=== PATIENT | female | born 1940 | race Caucasian/White ===

== ENCOUNTER 2016-07-17 16:14 | Inpatient (IN) | payer OTHER ==
[~2016-07-17] VITALS: Ht 152.4 cm; Wt 56.2 kg
[~2016-07-17 16:14] MED LIST: ALBU8.5H3 PO; ALLER-CLEAR PO; ASCO10004 PO; ASPI-13 PO; CHOL500015 PO; FLUT12HF2 INH; FLUT16SP NS; HYDR12.58 PO; LEVA15HF2 PO; LOSA25TA5 PO; MULT-516 PO; OMEG-14 PO; SODI1PAC12 NS; SODI50SP NS; TIOT18CA INH; VITA1TAB3 PO
[2016-07-17] MEDS ORDERED: methylPREDNISolone SOD SUCC 125 MG/2 ML IVP ONE (16:30)
[2016-07-17] MEDS ORDERED: SODIUM CHLORIDE FLUSH 10ML SYR IVF ONE (16:30)
[2016-07-17] MEDS ORDERED: ALBUTEROL SULFATE 2.5 MG/3 ML ONE (16:37)
[2016-07-17 16:58] LABS: BLOOD UREA NITROGEN 5 mg/dL (7-18)
[2016-07-17] MEDS ORDERED: PLEASE ENTER HEIGHT AND WEIGHT MC SCH (17:00)
[2016-07-17] MEDS ORDERED: methylPREDNISolone SOD SUCC 125 MG/2 ML ONE (17:07)
[2016-07-17 17:16] LABS: IS PT STATUS REG ER OR PRE ER? YES
[2016-07-17] MEDS ORDERED: POTASSIUM CHLORIDE 20 MEQ TAB.ER.PRT ONE (17:27)
[2016-07-17] MEDS ORDERED: POTASSIUM CHLORIDE 20 MEQ TAB.ER.PRT PO ONE (17:30)
[2016-07-17] MEDS ORDERED: POTASSIUM CHLORIDE 40 MEQ in SODIUM CHLORIDE 0.9% 500 ML IV ONE (17:30)
[2016-07-17] MEDS ORDERED: SODIUM CHLORIDE 0.9% 1,000ML IVBOLUS ONE (17:30)
[2016-07-17] MEDS ORDERED: BISACODYL 10 MG SUPP PR PRN (18:30)
[2016-07-17] MEDS ORDERED: DOCUSATE 100 MG CAPSULE PO PRN (18:30)
[2016-07-17] MEDS ORDERED: POLYETHYLENE GLYCOL 17 GM PACKET PO PRN (18:30)
[2016-07-17] MEDS ORDERED: ONDANSETRON 2MG/ML, 2ML IVPush PRN (18:30)
[2016-07-17] MEDS ORDERED: ACETAMINOPHEN 325 MG TABLET PO PRN (18:30)
[2016-07-17 20:15] VITALS: BP 126/69
[2016-07-17 21:04] VITALS: BP 158/68
[2016-07-17 22:01] LABS: BLOOD UREA NITROGEN 4 mg/dL (7-18)
[2016-07-17 22:06] LABS: IS PT STATUS REG ER OR PRE ER? NO
[2016-07-17] MEDS: NS + 20MEQ KCL 1,000 ML IV SCH (22:27)
[2016-07-17] MEDS: DOXYCYCLINE 100 MG in DEXTROSE 5% 250 ML IV SCH (22:27)
[2016-07-17] MEDS ORDERED: MAGNESIUM SULFATE PMX 2GM/50ML 50 ML IV ONE (22:30)
[2016-07-17] MEDS: ENOXAPARIN 40 MG/0.4 ML SQ SCH (22:37)
[2016-07-17] MEDS: methylPREDNISolone SOD SUCC 125 MG/2 ML IVPush SCH (23:20)
[2016-07-18 02:07] VITALS: BP 127/72
[2016-07-18] MEDS: methylPREDNISolone SOD SUCC 125 MG/2 ML IVPush SCH ×4 (05:13→23:23)
[2016-07-18 06:00] LABS: ASPARTATE AMINO TRANSFERASE 23 U/L (15-37); BLOOD UREA NITROGEN 3 mg/dL (7-18)
[2016-07-18 06:14] LABS: PATH.CAST-FLAG NOT PRESENT; SPERM-FLAG NOT PRESENT; SRC-FLAG NOT PRESENT; XTAL-FLAG NOT PRESENT; YLC-FLAG NOT PRESENT
[2016-07-18 06:15] LABS: POTASSIUM,URINE RANDOM 22 mmol/L
[2016-07-18 07:43] VITALS: BP 145/72
[2016-07-18] MEDS ORDERED: POTASSIUM CHLORIDE 20 MEQ TAB.ER.PRT PO SCH (08:00)
[2016-07-18] MEDS: LOSARTAN 25MG TABLET PO SCH (08:29)
[2016-07-18] MEDS: DOXYCYCLINE 100 MG in DEXTROSE 5% 250 ML IV SCH ×2 (10:55→20:55)
[2016-07-18] MEDS: FLUTICASONE/VILANTEROL 200-25MCG/INH INH SCH (10:56)
[2016-07-18] MEDS: FLUTICASONE NASAL SPRAY 16GM NAS SCH (10:56)
[2016-07-18] MEDS ORDERED: POTASSIUM CHLORIDE 20 MEQ TAB.ER.PRT PO ONE (11:00)
[2016-07-18] MEDS ORDERED: MAGNESIUM SULFATE PMX 2GM/50ML 50 ML IV ONE (11:00)
[2016-07-18] MEDS ORDERED: POTASSIUM CHLORIDE 40 MEQ in SODIUM CHLORIDE 0.9% 500 ML IV ONE (11:00)
[2016-07-18] MEDS: NS + 20MEQ KCL 1,000 ML IV SCH (11:01)
[2016-07-18] MEDS ORDERED: FUROSEMIDE 20 MG/2 ML IV ONE (11:30)
[2016-07-18] MEDS: MAGNESIUM CHLORIDE 64 MG TABLET.DR PO SCH ×2 (12:32→20:49)
[2016-07-18 13:22] VITALS: BP 184/74
[2016-07-18] MEDS: IPRATROPIUM 0.5 MG/2.5 ML INHA NPPB SCH ×2 (17:10→20:04)
[2016-07-18] MEDS: ALBUTEROL SULFATE 2.5 MG/3 ML NPPB PRN (17:10)
[2016-07-18] MEDS: POTASSIUM CHLORIDE 20 MEQ TAB.ER.PRT PO SCH (18:38)
[2016-07-18 19:34] VITALS: BP 123/61
[2016-07-18] MEDS: ENOXAPARIN 40 MG/0.4 ML SQ SCH (20:49)
[2016-07-19] MEDS: ALBUTEROL SULFATE 2.5 MG/3 ML NPPB PRN (00:05)
[2016-07-19 01:18] VITALS: BP 126/76
[2016-07-19] MEDS: methylPREDNISolone SOD SUCC 125 MG/2 ML IVPush SCH ×4 (05:47→23:13)
[2016-07-19 05:57] LABS: BLOOD UREA NITROGEN 7 mg/dL (7-18)
[2016-07-19 06:46] VITALS: BP 159/68
[2016-07-19] MEDS: IPRATROPIUM 0.5 MG/2.5 ML INHA NPPB SCH ×3 (08:59→18:58)
[2016-07-19] MEDS: FLUTICASONE/VILANTEROL 200-25MCG/INH INH SCH (09:36)
[2016-07-19] MEDS: FLUTICASONE NASAL SPRAY 16GM NAS SCH (09:36)
[2016-07-19] MEDS: DOXYCYCLINE 100 MG in DEXTROSE 5% 250 ML IV SCH ×2 (09:37→21:45)
[2016-07-19] MEDS: MAGNESIUM CHLORIDE 64 MG TABLET.DR PO SCH ×2 (09:37→20:12)
[2016-07-19] MEDS: LOSARTAN 25MG TABLET PO SCH (09:37)
[2016-07-19] MEDS: POTASSIUM CHLORIDE 20 MEQ TAB.ER.PRT PO SCH ×2 (09:37→18:31)
[2016-07-19] MEDS: FUROSEMIDE 20 MG TABLET PO SCH (11:55)
[2016-07-19 13:07] VITALS: BP 136/75
[2016-07-19] MEDS: ACETAMINOPHEN 325 MG TABLET PO SCH ×2 (15:00→20:12)
[2016-07-19 18:22] VITALS: BP 145/67
[2016-07-19] MEDS: ENOXAPARIN 40 MG/0.4 ML SQ SCH (20:11)
[2016-07-20 03:32] VITALS: BP 140/71
[2016-07-20 05:25] LABS: BLOOD UREA NITROGEN 13 mg/dL (7-18)
[2016-07-20] MEDS: methylPREDNISolone SOD SUCC 125 MG/2 ML IVPush SCH ×3 (05:40→18:31)
[2016-07-20] MEDS: IPRATROPIUM 0.5 MG/2.5 ML INHA NPPB SCH ×3 (08:10→20:13)
[2016-07-20 08:30] VITALS: BP 149/80
[2016-07-20] MEDS: FLUTICASONE NASAL SPRAY 16GM NAS SCH (09:00)
[2016-07-20] MEDS: FLUTICASONE/VILANTEROL 200-25MCG/INH INH SCH (09:00)
[2016-07-20] MEDS: POTASSIUM CHLORIDE 20 MEQ TAB.ER.PRT PO SCH (10:12)
[2016-07-20] MEDS: FUROSEMIDE 20 MG TABLET PO SCH (10:13)
[2016-07-20] MEDS: MAGNESIUM CHLORIDE 64 MG TABLET.DR PO SCH ×2 (10:14→20:59)
[2016-07-20] MEDS: LOSARTAN 25MG TABLET PO SCH ×2 (10:14→20:59)
[2016-07-20] MEDS: DOXYCYCLINE 100 MG in DEXTROSE 5% 250 ML IV SCH ×2 (10:18→20:59)
[2016-07-20] MEDS: ACETAMINOPHEN 325 MG TABLET PO SCH ×2 (11:42→21:00)
[2016-07-20] MEDS ORDERED: ERGOCALCIFEROL 50,000 UNIT CAPSULE PO SCH (12:00)
[2016-07-20 17:22] VITALS: BP 164/74
[2016-07-20 18:25] LABS: ABG COLLECTION SITE LEFT BRACHIAL
[2016-07-20] MEDS: ALBUTEROL/IPRATROPIUM 2.5MG/0.5MG, 3 ML NPPB SCH ×2 (20:00→21:00)
[2016-07-20] MEDS ORDERED: IPRATROPIUM 0.5 MG/2.5 ML INHA ONE (20:05)
[2016-07-20 20:45] VITALS: BP 170/79
[2016-07-20] MEDS: ENOXAPARIN 40 MG/0.4 ML SQ SCH (21:00)
[2016-07-20] MEDS ORDERED: IPRATROPIUM 0.5 MG/2.5 ML INHA NPPB SCH (21:00)
[2016-07-20 21:08] LABS: ABG COLLECTION SITE LEFT RADIAL; COLLATERAL CIRCULATION TESTING NORMAL
[2016-07-20] MEDS: CEFTRIAXONE PMX 1GM/50ML 50 ML IV SCH (22:32)
[2016-07-21] MEDS: methylPREDNISolone SOD SUCC 125 MG/2 ML IVPush SCH ×5 (00:01→23:47)
[2016-07-21 01:36] VITALS: BP 173/72
[2016-07-21] MEDS: hydrALAzine 20 MG/ML, 1ML IV PRN (01:55)
[2016-07-21] MEDS ORDERED: LORazepam 2 MG/ML, 1ML IVPush ONE (03:00)
[2016-07-21] MEDS ORDERED: LORazepam 0.5MG TABLET PO PRN (03:00)
[2016-07-21 07:30] VITALS: BP 160/95
[2016-07-21] MEDS: IPRATROPIUM 0.5 MG/2.5 ML INHA NPPB SCH ×5 (08:13→22:23)
[2016-07-21] MEDS: DOXYCYCLINE 100 MG in DEXTROSE 5% 250 ML IV SCH ×2 (08:51→21:22)
[2016-07-21] MEDS: FLUTICASONE/VILANTEROL 200-25MCG/INH INH SCH (08:51)
[2016-07-21] MEDS: FLUTICASONE NASAL SPRAY 16GM NAS SCH (08:52)
[2016-07-21] MEDS: MAGNESIUM CHLORIDE 64 MG TABLET.DR PO SCH ×2 (08:52→20:38)
[2016-07-21] MEDS: LOSARTAN 25MG TABLET PO SCH (08:52)
[2016-07-21] MEDS: ACETAMINOPHEN 325 MG TABLET PO SCH ×2 (08:53→20:39)
[2016-07-21 12:22] VITALS: BP 159/80
[2016-07-21] MEDS ORDERED: LABETALOL 5MG/ML, 20ML IV PRN (17:00)
[2016-07-21] MEDS: NYSTATIN 500,000 UNITS/5 ML UDC PO SCH ×2 (17:28→20:39)
[2016-07-21] MEDS: CARVEDILOL 6.25 MG TABLET PO SCH (17:29)
[2016-07-21 18:38] VITALS: BP 170/103
[2016-07-21 19:56] VITALS: BP 158/71
[2016-07-21 20:34] VITALS: BP 175/94
[2016-07-21] MEDS: CEFTRIAXONE PMX 1GM/50ML 50 ML IV SCH (20:37)
[2016-07-21] MEDS: ENOXAPARIN 40 MG/0.4 ML SQ SCH (20:39)
[2016-07-21] MEDS: LOSARTAN 50MG TABLET PO SCH (21:22)
[2016-07-22 01:45] VITALS: BP 196/95
[2016-07-22] MEDS: hydrALAzine 20 MG/ML, 1ML IV PRN (01:50)
[2016-07-22 04:00] VITALS: BP 152/81
[2016-07-22 06:08] LABS: BLOOD UREA NITROGEN 16 mg/dL (7-18)
[2016-07-22] MEDS: NYSTATIN 500,000 UNITS/5 ML UDC PO SCH ×4 (06:09→21:13)
[2016-07-22] MEDS: methylPREDNISolone SOD SUCC 125 MG/2 ML IVPush SCH ×4 (06:09→23:30)
[2016-07-22] MEDS: CARVEDILOL 6.25 MG TABLET PO SCH (06:09)
[2016-07-22] MEDS: IPRATROPIUM 0.5 MG/2.5 ML INHA NPPB SCH ×4 (07:20→19:15)
[2016-07-22 07:22] VITALS: BP 172/80
[2016-07-22] MEDS: LOSARTAN 50MG TABLET PO SCH ×2 (08:30→21:14)
[2016-07-22] MEDS: MAGNESIUM CHLORIDE 64 MG TABLET.DR PO SCH ×2 (08:30→21:14)
[2016-07-22] MEDS: ACETAMINOPHEN 325 MG TABLET PO SCH ×2 (08:30→21:13)
[2016-07-22] MEDS: DOXYCYCLINE 100 MG in DEXTROSE 5% 250 ML IV SCH ×2 (08:35→22:01)
[2016-07-22] MEDS ORDERED: FUROSEMIDE 20 MG/2 ML IV ONE (10:30)
[2016-07-22] MEDS: FLUTICASONE/VILANTEROL 200-25MCG/INH INH SCH (12:19)
[2016-07-22] MEDS: FLUTICASONE NASAL SPRAY 16GM NAS SCH (12:19)
[2016-07-22 13:50] VITALS: BP 162/71
[2016-07-22] MEDS ORDERED: CARVEDILOL 6.25 MG TABLET PO SCH (18:00)
[2016-07-22 21:00] VITALS: BP 147/73
[2016-07-22] MEDS: CEFTRIAXONE PMX 1GM/50ML 50 ML IV SCH (21:08)
[2016-07-22] MEDS: ENOXAPARIN 40 MG/0.4 ML SQ SCH (21:14)
[2016-07-23 02:49] VITALS: BP 148/81
[2016-07-23] MEDS ORDERED: CARVEDILOL 25 MG TABLET PO SCH (06:00)
[2016-07-23] MEDS: methylPREDNISolone SOD SUCC 125 MG/2 ML IVPush SCH ×2 (06:05→11:40)
[2016-07-23] MEDS: NYSTATIN 500,000 UNITS/5 ML UDC PO SCH ×2 (06:05→11:40)
[2016-07-23 06:52] VITALS: BP 148/71
[2016-07-23] MEDS: IPRATROPIUM 0.5 MG/2.5 ML INHA NPPB SCH ×3 (07:15→16:38)
[2016-07-23] MEDS: FLUTICASONE/VILANTEROL 200-25MCG/INH INH SCH (08:22)
[2016-07-23] MEDS: ACETAMINOPHEN 325 MG TABLET PO SCH (08:23)
[2016-07-23] MEDS: LOSARTAN 50MG TABLET PO SCH (08:23)
[2016-07-23] MEDS: FLUTICASONE NASAL SPRAY 16GM NAS SCH (08:23)
[2016-07-23] MEDS: MAGNESIUM CHLORIDE 64 MG TABLET.DR PO SCH (08:23)
[2016-07-23] MEDS: DOXYCYCLINE 100 MG in DEXTROSE 5% 250 ML IV SCH (09:27)
[2016-07-23] MEDS ORDERED: CEFT1PIG2 IV (10:59)
[2016-07-23] MEDS ORDERED: PRED5TAB PO (10:59)
[2016-07-23] MEDS ORDERED: DOXY100T PO (10:59)
[2016-07-23] MEDS ORDERED: ERGO500017 PO (10:59)
[2016-07-23] MEDS ORDERED: LOSA50TA2 PO (10:59)
[2016-07-23] MEDS ORDERED: POLY17PO5 PO (10:59)
[2016-07-23] MEDS ORDERED: ACET325T14 PO (10:59)
[2016-07-23] MEDS ORDERED: CARV25TA12 PO (10:59)
[2016-07-23] MEDS ORDERED: POTA20TA14 PO (10:59)
[2016-07-23] MEDS ORDERED: FLUT1DIS3 INH (10:59)
[2016-07-23] MEDS ORDERED: TRAM50TA2 PO ×2 (10:59)
[2016-07-23] MEDS ORDERED: FURO20TA3 PO (10:59)
[2016-07-23] MEDS ORDERED: MAGN64TA9 PO (10:59)
[2016-07-23 16:56] VITALS: BP 168/81
[2016-07-24] MEDS ORDERED: FUROSEMIDE 20 MG TABLET PO SCH (09:00)
== END 2016-07-23 19:05 | disposition home or self-care (01) | DRG 291 ==
LOC: ED 18:00 → EDIP 18:01 → SUATTDRO 18:09 → ED 18:35 → 5SO 20:04
DX: I11.0 Hypertensive heart disease with heart failure (principal); J96.21 Acute and chronic respiratory failure with hypoxia; J18.9 Pneumonia, unspecified organism; E87.1 Hypo-osmolality and hyponatremia; J44.1 Chronic obstructive pulmonary disease with (acute) exacerbation; J44.0 Chronic obstructive pulmonary disease with (acute) lower respiratory infection; E55.9 Vitamin D deficiency, unspecified; E87.6 Hypokalemia; F17.200 Nicotine dependence, unspecified, uncomplicated; G89.29 Other chronic pain; M54.9 Dorsalgia, unspecified; I50.33 Acute on chronic diastolic (congestive) heart failure; I73.9 Peripheral vascular disease, unspecified; R13.10 Dysphagia, unspecified; Z99.81 Dependence on supplemental oxygen; W18.39XA Other fall on same level, initial encounter; Y93.89 Activity, other specified; Y92.89 Other specified places as the place of occurrence of the external cause; Y99.8 Other external cause status
CPT/HCPCS: 36415; 36600; 70450; 71010; 74230; 80048; 80053; 81001; 82040; 82306; 82436; 82607; 82803; 83605; 83735; 83880; 83930; 83935; 84133; 84145; 84300; 84439; 84443; 84484; 85025; 85610; 85730; 87040; 87070; 87205; 93005; 93306; 94640; 96365; 96366; 96375; J0696; J1650; J3480; J7060; J7613; J7644; 92523-GN; J0360; J1940; J2060; J2930; J3475; J7030; J7040

== ENCOUNTER 2016-08-10 12:53 | Inpatient (IN) | payer OTHER ==
[~2016-08-10] VITALS: Ht 144.8 cm; Wt 55.2 kg
[~2016-08-10 12:53] MED LIST changes: +ACET325T14 PO; +CARV25TA12 PO; +CEFT1PIG2 IV; +DOXY100T PO; +ERGO500017 PO; +FLUT1DIS3 INH; +FURO20TA3 PO; +LOSA50TA2 PO; +MAGN64TA9 PO; +POLY17PO5 PO; +POTA20TA14 PO; +PRED5TAB PO; +TRAM50TA2 PO
[2016-08-10] MEDS ORDERED: SODIUM CHLORIDE FLUSH 10ML SYR IVF ONE (13:30)
[2016-08-10 13:59] LABS: BLOOD UREA NITROGEN 12 mg/dL (7-18)
[2016-08-10 14:06] LABS: IS PT STATUS REG ER OR PRE ER? YES
[2016-08-10] MEDS ORDERED: ALBUTEROL/IPRATROPIUM 2.5MG/0.5MG, 3 ML NPPB ONE (15:30)
[2016-08-10] MEDS ORDERED: ALBUTEROL/IPRATROPIUM 2.5MG/0.5MG, 3 ML ONE (15:51)
[2016-08-10] MEDS: ALBUTEROL/IPRATROPIUM 2.5MG/0.5MG, 3 ML NPPB SCH ×3 (16:18→22:28)
[2016-08-10] MEDS ORDERED: CEFTRIAXONE 1,000 MG in SODIUM CHLORIDE 0.9% 50 ML IV SCH (16:30)
[2016-08-10] MEDS ORDERED: ALBUTEROL SULFATE 2.5 MG/3 ML NPPB SCH (16:30)
[2016-08-10] MEDS ORDERED: DOCUSATE 100 MG CAPSULE PO PRN (16:30)
[2016-08-10] MEDS ORDERED: ACETAMINOPHEN 325 MG TABLET PO PRN (16:30)
[2016-08-10] MEDS ORDERED: HYDROcodone/APAP 5/325 TABLET PO PRN (16:30)
[2016-08-10] MEDS ORDERED: BISACODYL 10 MG SUPP PR PRN (16:30)
[2016-08-10] MEDS ORDERED: ONDANSETRON 2MG/ML, 2ML IVPush PRN (16:30)
[2016-08-10] MEDS ORDERED: FUROSEMIDE 20 MG/2 ML IV ONE (16:30)
[2016-08-10] MEDS ORDERED: POLYETHYLENE GLYCOL 17 GM PACKET PO PRN (16:30)
[2016-08-10 17:00] VITALS: BP 133/71
[2016-08-10] MEDS: CARVEDILOL 25 MG TABLET PO SCH (18:23)
[2016-08-10] MEDS: methylPREDNISolone SOD SUCC 125 MG/2 ML IVPush SCH (18:24)
[2016-08-10 18:32] VITALS: BP 133/71
[2016-08-10 19:31] VITALS: BP 119/66
[2016-08-10] MEDS: FLUTICASONE/VILANTEROL 100-25MCG/INH INH SCH (21:00)
[2016-08-10] MEDS: SODIUM CHLORIDE FLUSH 3ML SYRINGE IVF SCH (21:00)
[2016-08-10] MEDS: ERGOCALCIFEROL 50,000 UNIT CAPSULE PO SCH (21:07)
[2016-08-10] MEDS: GUAIFENESIN ER 600 MG TABLET PO SCH (21:07)
[2016-08-10] MEDS: LOSARTAN 50MG TABLET PO SCH (21:07)
[2016-08-10] MEDS: DOXYCYCLINE 100 MG in DEXTROSE 5% 250 ML IV SCH (21:07)
[2016-08-10] MEDS: ENOXAPARIN 40 MG/0.4 ML SQ SCH (21:08)
[2016-08-10] MEDS: CEFTRIAXONE PMX 1GM/50ML 50 ML IV SCH (21:33)
[2016-08-11] MEDS: methylPREDNISolone SOD SUCC 125 MG/2 ML IVPush SCH ×4 (00:28→16:37)
[2016-08-11] MEDS: ALBUTEROL/IPRATROPIUM 2.5MG/0.5MG, 3 ML NPPB SCH ×7 (02:41→23:00)
[2016-08-11] MEDS: morphine SULFATE 10 MG/ML, 1ML IVPush PRN (02:51)
[2016-08-11 03:20] VITALS: BP 130/76
[2016-08-11] MEDS ORDERED: TRAZODONE 50MG TABLET PO PRN (03:30)
[2016-08-11] MEDS ORDERED: LORazepam 1MG TABLET PO ONE (03:30)
[2016-08-11 03:31] LABS: ABG COLLECTION SITE RIGHT BRACHIAL
[2016-08-11 03:42] LABS: BLOOD UREA NITROGEN 14 mg/dL (7-18)
[2016-08-11] MEDS ORDERED: FUROSEMIDE 40 MG/4 ML ONE (04:22)
[2016-08-11] MEDS: FUROSEMIDE 40 MG/4 ML IV SCH ×2 (04:25→17:00)
[2016-08-11 06:07] VITALS: BP 146/83
[2016-08-11] MEDS: CARVEDILOL 25 MG TABLET PO SCH ×2 (06:09→18:00)
[2016-08-11 07:46] VITALS: BP 136/73
[2016-08-11] MEDS ORDERED: OMNIPAQUE 350 MG/ML, 100ML BOTTLE ONE (07:47)
[2016-08-11] MEDS ORDERED: methylPREDNISolone SOD SUCC 125 MG/2 ML IVPush SCH (08:00)
[2016-08-11 08:34] LABS: ABG COLLECTION SITE LEFT RADIAL; COLLATERAL CIRCULATION TESTING NORMAL
[2016-08-11] MEDS: MAGNESIUM CHLORIDE 64 MG TABLET.DR PO SCH (08:49)
[2016-08-11] MEDS: GUAIFENESIN ER 600 MG TABLET PO SCH ×2 (08:49→20:45)
[2016-08-11] MEDS: LOSARTAN 50MG TABLET PO SCH ×2 (08:49→20:41)
[2016-08-11] MEDS: FLUTICASONE/VILANTEROL 100-25MCG/INH INH SCH ×2 (08:50→20:40)
[2016-08-11] MEDS: DOXYCYCLINE 100 MG in DEXTROSE 5% 250 ML IV SCH ×2 (08:51→21:03)
[2016-08-11] MEDS: SODIUM CHLORIDE FLUSH 3ML SYRINGE IVF SCH ×2 (08:51→21:00)
[2016-08-11] MEDS ORDERED: IPRATROPIUM 0.5 MG/2.5 ML INHA NPPB SCH (09:00)
[2016-08-11] MEDS ORDERED: POTASSIUM CHLORIDE 20 MEQ TAB.ER.PRT PO SCH (09:00)
[2016-08-11] MEDS ORDERED: FUROSEMIDE 20 MG TABLET PO SCH (09:00)
[2016-08-11] MEDS ORDERED: FUROSEMIDE 40 MG/4 ML IV ONE (14:00)
[2016-08-11 16:45] LABS: ABG COLLECTION SITE LEFT BRACHIAL
[2016-08-11] MEDS ORDERED: PROPOFOL 100 ML IV ONE (16:59)
[2016-08-11] MEDS ORDERED: MIDAZOLAM 1 MG/ML, 5ML ONE (17:22)
[2016-08-11] MEDS: ALBUTEROL/IPRATROPIUM 2.5MG/0.5MG, 3 ML INLINE SCH ×2 (18:00→21:28)
[2016-08-11] MEDS ORDERED: GLUCAGON 1 MG IM PRN (18:00)
[2016-08-11] MEDS ORDERED: LACTULOSE 20 GM/30 ML UDC NG PRN (18:00)
[2016-08-11] MEDS ORDERED: DEXTROSE 50%, 50ML SYRINGE IVPush PRN (18:00)
[2016-08-11] MEDS ORDERED: FENTANYL PF 100 MCG/2ML IVPush PRN (18:00)
[2016-08-11] MEDS ORDERED: PHARMACY MAY ADJ FOR RENAL FX MC SCH (18:00)
[2016-08-11 18:16] LABS: ABG COLLECTION SITE LEFT BRACHIAL
[2016-08-11] MEDS: LIDOCAINE-MPF 1%, 2ML ENDO PRN (19:27)
[2016-08-11] MEDS: ENOXAPARIN 40 MG/0.4 ML SQ SCH (21:03)
[2016-08-11] MEDS: LIDODERM 5% PATCH TD SCH (21:04)
[2016-08-11] MEDS: CEFTRIAXONE PMX 1GM/50ML 50 ML IV SCH (22:34)
[2016-08-12] MEDS: ALBUTEROL/IPRATROPIUM 2.5MG/0.5MG, 3 ML INLINE SCH ×6 (01:56→22:10)
[2016-08-12] MEDS: ALBUTEROL/IPRATROPIUM 2.5MG/0.5MG, 3 ML NPPB SCH ×3 (03:00→11:00)
[2016-08-12 04:35] LABS: ABG COLLECTION SITE LEFT BRACHIAL
[2016-08-12 04:48] LABS: BLOOD UREA NITROGEN 16 mg/dL (7-18)
[2016-08-12 05:22] VITALS: BP 123/56
[2016-08-12] MEDS: CARVEDILOL 25 MG TABLET PO SCH (05:42)
[2016-08-12] MEDS: PROPOFOL 100 ML IV PRN ×2 (06:01→20:27)
[2016-08-12] MEDS ORDERED: MAGNESIUM SULFATE PMX 4GM/100M 100 ML IV ONE (07:00)
[2016-08-12] MEDS: FUROSEMIDE 40 MG/4 ML IV SCH (07:30)
[2016-08-12] MEDS: methylPREDNISolone SOD SUCC 125 MG/2 ML IVPush SCH ×3 (08:04→16:32)
[2016-08-12] MEDS: PANTOPRAZOLE 40 MG IV IV SCH (08:07)
[2016-08-12] MEDS: FLUTICASONE/VILANTEROL 100-25MCG/INH INH SCH ×2 (08:41→20:20)
[2016-08-12] MEDS: DOXYCYCLINE 100 MG in DEXTROSE 5% 250 ML IV SCH ×2 (08:42→20:27)
[2016-08-12] MEDS: MAGNESIUM CHLORIDE 64 MG TABLET.DR PO SCH (08:43)
[2016-08-12] MEDS: GUAIFENESIN ER 600 MG TABLET PO SCH ×2 (08:43→20:27)
[2016-08-12] MEDS: SODIUM CHLORIDE FLUSH 3ML SYRINGE IVF SCH ×2 (08:44→20:27)
[2016-08-12] MEDS: POTASSIUM CHLORIDE 20 MEQ TAB.ER.PRT PO SCH (08:44)
[2016-08-12] MEDS: LOSARTAN 50MG TABLET PO SCH ×2 (09:00→20:26)
[2016-08-12] MEDS: CARVEDILOL 12.5 MG TABLET PO SCH (18:22)
[2016-08-12] MEDS: ENOXAPARIN 40 MG/0.4 ML SQ SCH (20:26)
[2016-08-12] MEDS: CEFTRIAXONE PMX 1GM/50ML 50 ML IV SCH (21:59)
[2016-08-12] MEDS: LIDODERM 5% PATCH TD SCH (22:00)
[2016-08-13] MEDS: methylPREDNISolone SOD SUCC 125 MG/2 ML IVPush SCH ×3 (00:43→17:00)
[2016-08-13] MEDS: ALBUTEROL/IPRATROPIUM 2.5MG/0.5MG, 3 ML INLINE SCH ×6 (03:32→22:00)
[2016-08-13 05:58] VITALS: BP 135/62
[2016-08-13] MEDS: CARVEDILOL 12.5 MG TABLET PO SCH ×2 (06:08→17:00)
[2016-08-13 06:41] LABS: ABG COLLECTION SITE RIGHT RADIAL; COLLATERAL CIRCULATION TESTING NORMAL
[2016-08-13 07:59] LABS: BLOOD UREA NITROGEN 15 mg/dL (7-18)
[2016-08-13] MEDS: SODIUM CHLORIDE FLUSH 3ML SYRINGE IVF SCH ×2 (08:43→19:53)
[2016-08-13] MEDS: FLUTICASONE/VILANTEROL 100-25MCG/INH INH SCH ×2 (08:43→18:41)
[2016-08-13] MEDS: DOXYCYCLINE 100 MG in DEXTROSE 5% 250 ML IV SCH ×2 (08:43→19:58)
[2016-08-13] MEDS: PANTOPRAZOLE 40 MG IV IV SCH (08:43)
[2016-08-13] MEDS: GUAIFENESIN ER 600 MG TABLET PO SCH ×2 (08:44→19:53)
[2016-08-13] MEDS: MAGNESIUM CHLORIDE 64 MG TABLET.DR PO SCH (08:44)
[2016-08-13] MEDS: LOSARTAN 50MG TABLET PO SCH ×2 (08:44→19:52)
[2016-08-13] MEDS: POTASSIUM CHLORIDE 20 MEQ TAB.ER.PRT PO SCH (08:44)
[2016-08-13] MEDS: SODIUM CHLORIDE 0.9% 1,000 ML IV SCH (08:50)
[2016-08-13] MEDS: PROPOFOL 100 ML IV PRN ×2 (10:29→21:08)
[2016-08-13] MEDS: LIDODERM 5% PATCH TD SCH (19:52)
[2016-08-13] MEDS: ENOXAPARIN 40 MG/0.4 ML SQ SCH (19:52)
[2016-08-13] MEDS: CEFTRIAXONE PMX 1GM/50ML 50 ML IV SCH (21:04)
[2016-08-14] MEDS: methylPREDNISolone SOD SUCC 125 MG/2 ML IVPush SCH ×4 (00:17→23:29)
[2016-08-14] MEDS: ALBUTEROL/IPRATROPIUM 2.5MG/0.5MG, 3 ML INLINE SCH ×6 (02:00→21:38)
[2016-08-14] MEDS: SODIUM CHLORIDE 0.9% 1,000 ML IV SCH (03:44)
[2016-08-14] MEDS: PROPOFOL 100 ML IV PRN ×2 (03:44→14:35)
[2016-08-14 04:28] LABS: ABG COLLECTION SITE RIGHT RADIAL; COLLATERAL CIRCULATION TESTING NORMAL
[2016-08-14] MEDS: CARVEDILOL 12.5 MG TABLET PO SCH ×2 (05:26→18:10)
[2016-08-14 06:10] VITALS: BP 134/52
[2016-08-14] MEDS: FLUTICASONE/VILANTEROL 100-25MCG/INH INH SCH ×2 (08:08→20:50)
[2016-08-14] MEDS: SODIUM CHLORIDE FLUSH 3ML SYRINGE IVF SCH ×2 (09:00→21:07)
[2016-08-14] MEDS: DOXYCYCLINE 100 MG in DEXTROSE 5% 250 ML IV SCH (09:27)
[2016-08-14] MEDS: RISPERIDONE 1 MG/ML ORAL SOLN NG SCH ×2 (09:27→21:06)
[2016-08-14] MEDS: PANTOPRAZOLE 40 MG IV IV SCH (09:27)
[2016-08-14] MEDS: GUAIFENESIN ER 600 MG TABLET PO SCH ×2 (09:28→21:06)
[2016-08-14] MEDS: MAGNESIUM CHLORIDE 64 MG TABLET.DR PO SCH (09:28)
[2016-08-14] MEDS: LOSARTAN 50MG TABLET PO SCH ×2 (09:28→21:06)
[2016-08-14] MEDS: MEROPENEM 1 GM in SODIUM CHLORIDE 0.9% 100 ML IV SCH ×2 (13:18→21:07)
[2016-08-14] MEDS: LIDODERM 5% PATCH TD SCH (20:59)
[2016-08-14] MEDS: ENOXAPARIN 40 MG/0.4 ML SQ SCH (21:07)
[2016-08-15] MEDS ORDERED: FUROSEMIDE 40 MG/4 ML IV ONE (00:30)
[2016-08-15] MEDS: SODIUM CHLORIDE 0.9% 1,000 ML IV SCH ×2 (00:33→20:20)
[2016-08-15] MEDS: ALBUTEROL/IPRATROPIUM 2.5MG/0.5MG, 3 ML INLINE SCH ×6 (02:00→21:40)
[2016-08-15 04:54] LABS: ABG COLLECTION SITE LEFT RADIAL; COLLATERAL CIRCULATION TESTING NORMAL
[2016-08-15] MEDS: MEROPENEM 1 GM in SODIUM CHLORIDE 0.9% 100 ML IV SCH ×3 (05:12→21:00)
[2016-08-15] MEDS: CARVEDILOL 12.5 MG TABLET PO SCH ×2 (05:13→17:00)
[2016-08-15] MEDS: PROPOFOL 100 ML IV PRN ×3 (06:00→23:45)
[2016-08-15] MEDS: PANTOPRAZOLE 40 MG IV IV SCH (08:34)
[2016-08-15] MEDS: LOSARTAN 50MG TABLET PO SCH ×2 (08:35→20:18)
[2016-08-15] MEDS: methylPREDNISolone SOD SUCC 125 MG/2 ML IVPush SCH ×3 (08:35→23:45)
[2016-08-15] MEDS: MAGNESIUM CHLORIDE 64 MG TABLET.DR PO SCH (08:35)
[2016-08-15] MEDS: GUAIFENESIN ER 600 MG TABLET PO SCH ×2 (08:37→20:18)
[2016-08-15] MEDS: FLUTICASONE/VILANTEROL 100-25MCG/INH INH SCH ×2 (08:37→20:17)
[2016-08-15] MEDS: SODIUM CHLORIDE FLUSH 3ML SYRINGE IVF SCH (08:37)
[2016-08-15] MEDS: RISPERIDONE 1 MG/ML ORAL SOLN NG SCH ×2 (08:50→20:18)
[2016-08-15] MEDS: SODIUM CHLORIDE FLUSH 10ML SYR IVF SCH (20:17)
[2016-08-15] MEDS: LIDODERM 5% PATCH TD SCH (20:19)
[2016-08-15] MEDS: ENOXAPARIN 40 MG/0.4 ML SQ SCH (20:19)
[2016-08-16] MEDS: ALBUTEROL/IPRATROPIUM 2.5MG/0.5MG, 3 ML INLINE SCH ×6 (01:35→21:54)
[2016-08-16 03:55] VITALS: BP 133/63
[2016-08-16] MEDS: MEROPENEM 1 GM in SODIUM CHLORIDE 0.9% 100 ML IV SCH ×3 (04:47→20:13)
[2016-08-16] MEDS: PROPOFOL 100 ML IV PRN ×2 (04:47→16:42)
[2016-08-16] MEDS: CARVEDILOL 12.5 MG TABLET PO SCH ×2 (04:48→17:30)
[2016-08-16 05:58] LABS: BLOOD UREA NITROGEN 23 mg/dL (7-18)
[2016-08-16] MEDS: PANTOPRAZOLE 40 MG IV IV SCH (08:30)
[2016-08-16] MEDS: methylPREDNISolone SOD SUCC 125 MG/2 ML IVPush SCH ×3 (08:30→23:07)
[2016-08-16] MEDS: LOSARTAN 50MG TABLET PO SCH ×2 (08:30→20:14)
[2016-08-16] MEDS: MAGNESIUM CHLORIDE 64 MG TABLET.DR PO SCH (08:30)
[2016-08-16] MEDS: SODIUM CHLORIDE FLUSH 10ML SYR IVF SCH ×2 (08:31→20:13)
[2016-08-16] MEDS: FLUTICASONE/VILANTEROL 100-25MCG/INH INH SCH ×2 (08:31→20:12)
[2016-08-16] MEDS: RISPERIDONE 1 MG/ML ORAL SOLN NG SCH ×2 (08:31→20:13)
[2016-08-16] MEDS: GUAIFENESIN 100 MG/5 ML, 5ML UDC NG SCH ×4 (09:00→20:13)
[2016-08-16] MEDS: INSULIN ASPART 100 UNITS/ML, PEN SQ-INSULIN SCH ×3 (10:39→23:07)
[2016-08-16] MEDS: SODIUM CHLORIDE 0.9% 1,000 ML IV SCH (16:42)
[2016-08-16] MEDS: ENOXAPARIN 40 MG/0.4 ML SQ SCH (20:14)
[2016-08-16] MEDS: LIDODERM 5% PATCH TD SCH (20:16)
[2016-08-16] MEDS: LIDOCAINE-MPF 1%, 2ML ENDO PRN (20:51)
[2016-08-17] MEDS: ALBUTEROL/IPRATROPIUM 2.5MG/0.5MG, 3 ML INLINE SCH ×6 (01:55→22:00)
[2016-08-17] MEDS: PROPOFOL 100 ML IV PRN ×2 (02:07→17:55)
[2016-08-17 04:42] LABS: ABG COLLECTION SITE RIGHT RADIAL; COLLATERAL CIRCULATION TESTING NORMAL
[2016-08-17] MEDS: MEROPENEM 1 GM in SODIUM CHLORIDE 0.9% 100 ML IV SCH ×3 (05:10→21:40)
[2016-08-17] MEDS: INSULIN ASPART 100 UNITS/ML, PEN SQ-INSULIN SCH ×3 (05:22→16:22)
[2016-08-17 05:37] LABS: BLOOD UREA NITROGEN 26 mg/dL (7-18)
[2016-08-17 06:00] VITALS: BP 126/58
[2016-08-17] MEDS: methylPREDNISolone SOD SUCC 125 MG/2 ML IVPush SCH ×2 (06:31→16:22)
[2016-08-17] MEDS: CARVEDILOL 12.5 MG TABLET PO SCH ×2 (06:31→16:25)
[2016-08-17] MEDS: GUAIFENESIN 100 MG/5 ML, 5ML UDC NG SCH ×4 (06:31→21:41)
[2016-08-17] MEDS: FLUTICASONE/VILANTEROL 100-25MCG/INH INH SCH ×2 (09:00→21:42)
[2016-08-17] MEDS: PANTOPRAZOLE 40 MG IV IV SCH (09:14)
[2016-08-17] MEDS: FUROSEMIDE 20 MG/2 ML IV SCH ×2 (09:14→21:42)
[2016-08-17] MEDS: SODIUM CHLORIDE FLUSH 10ML SYR IVF SCH (09:14)
[2016-08-17] MEDS: RISPERIDONE 1 MG/ML ORAL SOLN NG SCH ×2 (09:15→21:40)
[2016-08-17] MEDS: MAGNESIUM CHLORIDE 64 MG TABLET.DR PO SCH (09:15)
[2016-08-17] MEDS: LOSARTAN 50MG TABLET PO SCH ×2 (09:16→21:40)
[2016-08-17] MEDS: SODIUM CHLORIDE 0.9% 1,000 ML IV SCH (10:37)
[2016-08-17] MEDS ORDERED: ENALAPRILAT 1.25 MG/ML, 2ML ONE (10:44)
[2016-08-17] MEDS ORDERED: ENALAPRILAT 1.25 MG/ML, 2ML IV PRN (11:00)
[2016-08-17] MEDS: LABETALOL 5MG/ML 40ML VIAL IVPush PRN (12:17)
[2016-08-17] MEDS: ERGOCALCIFEROL 50,000 UNIT CAPSULE PO SCH (21:00)
[2016-08-17] MEDS ORDERED: PHARMACY MAY ADJ FOR RENAL FX MC SCH (21:30)
[2016-08-17] MEDS ORDERED: POLYETHYLENE GLYCOL 17 GM PACKET PO PRN (21:30)
[2016-08-17] MEDS ORDERED: DOCUSATE 100 MG CAPSULE PO PRN (21:30)
[2016-08-17] MEDS ORDERED: BISACODYL 10 MG SUPP PR PRN (21:30)
[2016-08-17] MEDS ORDERED: DEXTROSE 50%, 50ML SYRINGE IVPush PRN (21:30)
[2016-08-17] MEDS: LIDODERM 5% PATCH TD SCH (21:41)
[2016-08-17] MEDS: ENOXAPARIN 40 MG/0.4 ML SQ SCH (21:41)
[2016-08-17] MEDS: morphine SULFATE 10 MG/ML, 1ML IVPush PRN (21:41)
[2016-08-18] MEDS: methylPREDNISolone SOD SUCC 125 MG/2 ML IVPush SCH ×4 (00:59→23:47)
[2016-08-18] MEDS: INSULIN ASPART 100 UNITS/ML, PEN SQ-INSULIN SCH ×5 (00:59→23:47)
[2016-08-18] MEDS: PROPOFOL 100 ML IV PRN (01:02)
[2016-08-18] MEDS: ALBUTEROL/IPRATROPIUM 2.5MG/0.5MG, 3 ML INLINE SCH ×6 (01:40→22:17)
[2016-08-18 04:25] VITALS: BP 109/55
[2016-08-18 04:33] LABS: ABG COLLECTION SITE RIGHT RADIAL; COLLATERAL CIRCULATION TESTING NORMAL
[2016-08-18 04:43] LABS: BLOOD UREA NITROGEN 30 mg/dL (7-18)
[2016-08-18] MEDS: MEROPENEM 1 GM in SODIUM CHLORIDE 0.9% 100 ML IV SCH ×3 (05:49→21:33)
[2016-08-18] MEDS: CARVEDILOL 12.5 MG TABLET PO SCH ×2 (05:50→18:33)
[2016-08-18] MEDS: GUAIFENESIN 100 MG/5 ML, 10ML UDC NG SCH ×4 (05:51→21:32)
[2016-08-18] MEDS: FLUTICASONE/VILANTEROL 100-25MCG/INH INH SCH ×2 (09:00→18:41)
[2016-08-18] MEDS: PANTOPRAZOLE 40 MG IV IV SCH (09:58)
[2016-08-18] MEDS: MAGNESIUM CHLORIDE 64 MG TABLET.DR PO SCH (09:58)
[2016-08-18] MEDS: FUROSEMIDE 20 MG/2 ML IV SCH ×2 (09:58→21:50)
[2016-08-18] MEDS: RISPERIDONE 1 MG/ML ORAL SOLN NG SCH ×2 (10:01→21:32)
[2016-08-18] MEDS: SODIUM CHLORIDE FLUSH 10ML SYR IVF SCH ×2 (10:01→21:33)
[2016-08-18] MEDS: LOSARTAN 50MG TABLET PO SCH ×2 (10:02→21:00)
[2016-08-18] MEDS: SODIUM CHLORIDE 0.9% 1,000 ML IV SCH (12:53)
[2016-08-18] MEDS: MIDAZOLAM 1 MG/ML, 2ML IVPush PRN ×2 (15:25→21:40)
[2016-08-18] MEDS: ENOXAPARIN 40 MG/0.4 ML SQ SCH (21:34)
[2016-08-18] MEDS: LIDODERM 5% PATCH TD SCH (21:36)
[2016-08-18] MEDS: morphine SULFATE 10 MG/ML, 1ML IVPush PRN (21:39)
[2016-08-19] MEDS: ALBUTEROL/IPRATROPIUM 2.5MG/0.5MG, 3 ML INLINE SCH ×6 (02:00→22:21)
[2016-08-19] MEDS: GUAIFENESIN 100 MG/5 ML, 10ML UDC NG SCH ×4 (05:20→20:42)
[2016-08-19] MEDS: MEROPENEM 1 GM in SODIUM CHLORIDE 0.9% 100 ML IV SCH ×3 (05:20→20:41)
[2016-08-19] MEDS: SODIUM CHLORIDE 0.9% 1,000 ML IV SCH (05:20)
[2016-08-19] MEDS: CARVEDILOL 12.5 MG TABLET PO SCH ×2 (05:21→17:05)
[2016-08-19] MEDS: INSULIN ASPART 100 UNITS/ML, PEN SQ-INSULIN SCH ×4 (05:27→23:10)
[2016-08-19 05:35] LABS: ABG COLLECTION SITE RIGHT RADIAL; COLLATERAL CIRCULATION TESTING NORMAL
[2016-08-19 06:17] LABS: BLOOD UREA NITROGEN 34 mg/dL (7-18)
[2016-08-19 06:31] VITALS: BP 130/60
[2016-08-19] MEDS: methylPREDNISolone SOD SUCC 125 MG/2 ML IVPush SCH ×3 (08:00→23:10)
[2016-08-19] MEDS: FLUTICASONE/VILANTEROL 100-25MCG/INH INH SCH ×2 (09:00→18:46)
[2016-08-19] MEDS ORDERED: SODIUM CHLORIDE 0.9% 1,000 ML IV SCH (09:00)
[2016-08-19] MEDS: FUROSEMIDE 20 MG/2 ML IV SCH ×2 (09:35→20:42)
[2016-08-19] MEDS: PANTOPRAZOLE 40 MG IV IV SCH (09:35)
[2016-08-19] MEDS: RISPERIDONE 1 MG/ML ORAL SOLN NG SCH ×2 (09:36→20:41)
[2016-08-19] MEDS: SODIUM CHLORIDE FLUSH 10ML SYR IVF SCH ×2 (09:36→20:42)
[2016-08-19] MEDS: MAGNESIUM CARBONATE 54 MG/5 ML ORAL SOL PO SCH (09:57)
[2016-08-19] MEDS: LOSARTAN 50MG TABLET PO SCH ×2 (09:57→20:41)
[2016-08-19] MEDS: LABETALOL 5MG/ML 40ML VIAL IVPush PRN (09:58)
[2016-08-19] MEDS: CHOLECALCIFEROL 1,000 UNIT TABLET NG SCH (10:05)
[2016-08-19] MEDS: LIDODERM 5% PATCH TD SCH (20:40)
[2016-08-19] MEDS: ENOXAPARIN 40 MG/0.4 ML SQ SCH (20:42)
[2016-08-20] MEDS: ALBUTEROL/IPRATROPIUM 2.5MG/0.5MG, 3 ML INLINE SCH ×4 (02:10→14:30)
[2016-08-20 04:00] VITALS: BP 135/54
[2016-08-20 04:31] LABS: ABG COLLECTION SITE RIGHT RADIAL; COLLATERAL CIRCULATION TESTING NORMAL
[2016-08-20 04:47] LABS: BLOOD UREA NITROGEN 34 mg/dL (7-18)
[2016-08-20] MEDS: MEROPENEM 1 GM in SODIUM CHLORIDE 0.9% 100 ML IV SCH ×3 (05:18→20:54)
[2016-08-20] MEDS: CARVEDILOL 12.5 MG TABLET PO SCH ×2 (05:18→17:42)
[2016-08-20] MEDS: GUAIFENESIN 100 MG/5 ML, 10ML UDC NG SCH ×4 (05:19→22:19)
[2016-08-20] MEDS: INSULIN ASPART 100 UNITS/ML, PEN SQ-INSULIN SCH ×4 (05:19→23:30)
[2016-08-20] MEDS: LOSARTAN 50MG TABLET PO SCH ×2 (08:53→22:19)
[2016-08-20] MEDS: CHOLECALCIFEROL 1,000 UNIT TABLET NG SCH (08:54)
[2016-08-20] MEDS: methylPREDNISolone SOD SUCC 125 MG/2 ML IVPush SCH ×2 (08:54→18:16)
[2016-08-20] MEDS: FUROSEMIDE 20 MG/2 ML IV SCH ×2 (08:54→20:55)
[2016-08-20] MEDS: SODIUM CHLORIDE FLUSH 10ML SYR IVF SCH ×2 (08:55→21:00)
[2016-08-20] MEDS: RISPERIDONE 1 MG/ML ORAL SOLN NG SCH ×2 (08:55→22:19)
[2016-08-20] MEDS: PANTOPRAZOLE 40 MG IV IV SCH (08:55)
[2016-08-20] MEDS: FLUTICASONE/VILANTEROL 100-25MCG/INH INH SCH ×2 (08:56→21:00)
[2016-08-20] MEDS: MAGNESIUM CARBONATE 54 MG/5 ML ORAL SOL PO SCH (09:00)
[2016-08-20] MEDS ORDERED: SCOPOLAMINE PATCH, 1.5MG PATCH.TD72 TD SCH (12:30)
[2016-08-20] MEDS: ALBUTEROL SULFATE 2.5 MG/3 ML NPPB SCH ×2 (18:50→22:00)
[2016-08-20] MEDS: LIDODERM 5% PATCH TD SCH (20:55)
[2016-08-20] MEDS: ENOXAPARIN 40 MG/0.4 ML SQ SCH (20:55)
[2016-08-21] MEDS: methylPREDNISolone SOD SUCC 125 MG/2 ML IVPush SCH (00:34)
[2016-08-21 04:00] VITALS: BP 159/69
[2016-08-21 04:22] LABS: ABG COLLECTION SITE RIGHT RADIAL; COLLATERAL CIRCULATION TESTING NORMAL
[2016-08-21] MEDS: MEROPENEM 1 GM in SODIUM CHLORIDE 0.9% 100 ML IV SCH ×2 (05:00→14:17)
[2016-08-21] MEDS: GUAIFENESIN 100 MG/5 ML, 10ML UDC NG SCH ×3 (06:01→16:00)
[2016-08-21 06:02] VITALS: BP 125/59
[2016-08-21] MEDS: CARVEDILOL 12.5 MG TABLET PO SCH ×2 (06:02→18:00)
[2016-08-21 06:03] LABS: BLOOD UREA NITROGEN 32 mg/dL (7-18)
[2016-08-21] MEDS: INSULIN ASPART 100 UNITS/ML, PEN SQ-INSULIN SCH ×3 (06:15→17:00)
[2016-08-21] MEDS: ALBUTEROL SULFATE 2.5 MG/3 ML NPPB SCH ×4 (06:49→19:29)
[2016-08-21] MEDS: FLUTICASONE/VILANTEROL 100-25MCG/INH INH SCH (09:00)
[2016-08-21] MEDS: SODIUM CHLORIDE FLUSH 10ML SYR IVF SCH (09:00)
[2016-08-21] MEDS: MAGNESIUM CARBONATE 54 MG/5 ML ORAL SOL PO SCH (09:00)
[2016-08-21] MEDS: CHOLECALCIFEROL 1,000 UNIT TABLET NG SCH (09:00)
[2016-08-21] MEDS: PANTOPRAZOLE 40 MG IV IV SCH (09:00)
[2016-08-21] MEDS: FUROSEMIDE 20 MG/2 ML IV SCH (09:00)
[2016-08-21] MEDS: LOSARTAN 50MG TABLET PO SCH (09:00)
[2016-08-21] MEDS: RISPERIDONE 1 MG/ML ORAL SOLN NG SCH (09:00)
[2016-08-21] MEDS: morphine SULFATE ORAL.CONC 20 MG/ML BC PRN ×2 (14:38→18:29)
== END 2016-08-21 21:18 | disposition hospice, home (50) | DRG 207 ==
LOC: ED 13:01 → EDIP 15:31 → 3NW 17:00 → CCU 08-11 15:41 → ICU 08-17 22:48
PROVIDERS: ADMIT Hospitalist; ATTEND Hospitalist
PROC: 0BH17EZ Insertion of Endotracheal Airway into Trachea, Via Natural or Artificial Opening (ICD-10-PCS; principal; 2016-08-11)
PROC: 5A1955Z Respiratory Ventilation, Greater than 96 Consecutive Hours (ICD-10-PCS; 2016-08-11)
DX: J96.21 Acute and chronic respiratory failure with hypoxia (principal); J15.1 Pneumonia due to Pseudomonas; J44.1 Chronic obstructive pulmonary disease with (acute) exacerbation; J44.0 Chronic obstructive pulmonary disease with (acute) lower respiratory infection; J98.11 Atelectasis; M48.54XA Collapsed vertebra, not elsewhere classified, thoracic region, initial encounter for fracture; Z99.11 Dependence on respirator [ventilator] status; D64.9 Anemia, unspecified; F41.9 Anxiety disorder, unspecified; I11.0 Hypertensive heart disease with heart failure; I73.9 Peripheral vascular disease, unspecified; E87.6 Hypokalemia; J20.9 Acute bronchitis, unspecified; I50.9 Heart failure, unspecified; R73.9 Hyperglycemia, unspecified; T38.0X5A Adverse effect of glucocorticoids and synthetic analogues, initial encounter; Z66 Do not resuscitate; Z51.5 Encounter for palliative care; Z90.721 Acquired absence of ovaries, unilateral; Z82.49 Family history of ischemic heart disease and other diseases of the circulatory system
CPT/HCPCS: 36415; 36600; 71010; 71275; 80048; 82040; 82803; 82962; 83036; 83605; 83735; 83880; 84100; 84478; 84484; 85025; 87070; 87077; 87081; 87186; 87205; 93005; 93306; 94002; 94003; 94150; 94640; 99285; J0696; J1650; J1815; J1940; J2185; J2250; J2704; J3010; J3490; J7060; J7613; J7620; Q9967; C9113; J2270; J2930; J3475; J7030; J7512